=== PATIENT | male | born 1975 | race Caucasian/White ===

== ENCOUNTER 2016-08-07 04:21 | Emergency (ER) | payer OTHER ==
[~2016-08-07 04:21] MED LIST: NAPROXEN PO; PROTONIX PO; STOOL SOFT & ST1 TAB PO
== END 2016-08-07 04:25 | disposition home or self-care (01) ==
LOC: CED 04:21
DX: J01.00 Acute maxillary sinusitis, unspecified (principal); F17.210 Nicotine dependence, cigarettes, uncomplicated; Z88.0 Allergy status to penicillin
CPT/HCPCS: 99282

== ENCOUNTER → 2016-08-23 04:47 | Emergency (ER) | payer OTHER | END | disposition home or self-care (01) | LOC: CED 04:47 | DX: K40.90 Unilateral inguinal hernia, without obstruction or gangrene, not specified as recurrent (principal); F17.210 Nicotine dependence, cigarettes, uncomplicated; Z88.0 Allergy status to penicillin; Z98.890 Other specified postprocedural states | CPT/HCPCS: 99282 ==